=== PATIENT | male | born 2005 | race Caucasian/White ===

== ENCOUNTER 2024-02-09 19:12 | Emergency (ER) | payer BC, SELFPAY ==
[2024-02-09 19:36] VITALS: BP 165/86; PULSE 82; RESP 16; TEMP 36.6; O2SAT 98; BMI 29.7
--- NOTE | 2024-02-09 20:40 | ED_ITS ---
HPI - General Adult General Chief complaint: Dental/Oral/Mouth Injury/Pain Stated complaint: tooth pain Time Seen by Provider: 02/09/24 20:22 Source: patient Mode of arrival: ambulatory Limitations: no limitations History of Present Illness HPI narrative: 18-year-old male coming in today complaining of dental pain going on for 3 days. He denies any systemic symptoms. States he has had a root canal in that tooth a few years ago. Has not seen a dentist recently. Related Data Home Medications ?Medication ?Instructions ?Recorded ?Confirmed No Known Home Medications 02/09/24 02/09/24 Allergies Allergy/AdvReac Type Severity Reaction Status Date / Time No Known Drug Allergies Allergy Verified 02/09/24 19:39 Review of Systems Status of ROS: Reports: 10 or more systems reviewed and unremarkable except as noted in History and below Exam Narrative: Exam Narrative: Well-nourished well-developed patient in no acute distress. Alert and oriented. Answers questions appropriately. Mood and affect are appropriate. Thoughts are goal oriented and rational. No tangential or magical thinking noted. Patient speaks in full sentences without needing to catch his breath. He does not appear ill or toxic. HEENT: Normocephalic atraumatic. Pupils are equally round reactive to light. Extraocular muscles are intact. Conjunctivae are moist without any icterus noted. Moist mucous membranes. Posterior pharynx is normal. Neck is soft without any lymphadenopathy or thyromegaly. No masses are appreciated. Patient has tenderness to palpation of the 1st molar on the left lower side. Some mild erythema underneath it. There was no areas of fluctuance, no significant swelling noted. Skin: Warm, dry, intact. Const: Vital Signs, click to edit/add: Vital Signs - 24 hr 02/09/24 19:36 Temperature 97.9 F Pulse Rate [Left P ulse Oximeter] 82 Respiratory Rate 16 Blood Pressure [Ri ght Upper Arm] 165/86 H Pulse Oximetry 98 Oxygen Delivery Me thod Room Air Course Vital Signs Vital signs: Initial Vital Signs Temperature 97.9 F 02/09/24 19:36 Temperature Source Temporal Artery Scan 02/09/24 19:36 Pulse Rate 82 02/09/24 19:36 Pulse Rhythm Regular 02/09/24 19:36 Respiratory Rate 16 02/09/24 19:36 Blood Pressure 165/86 H 02/09/24 19:36 Blood Pressure Mean 112 H 02/09/24 19:36 Blood Pressure Position Sitting 02/09/24 19:36 Pulse Oximetry 98 02/09/24 19:36 Oxygen Delivery Method Room Air 02/09/24 19:36 Vital Signs Temperature 97.9 F 02/09/24 19:36 Pulse Rate 82 02/09/24 19:36 Respiratory Rate 16 02/09/24 19:36 Blood Pressure 165/86 H 02/09/24 19:36 Pulse Oximetry 98 02/09/24 19:36 Oxygen Delivery Method Room Air 02/09/24 19:36 Temperature 97.9 F 02/09/24 19:36 Pulse Rate 82 02/09/24 19:36 Respiratory Rate 16 02/09/24 19:36 Blood Pressure 165/86 H 02/09/24 19:36 Pulse Oximetry 98 02/09/24 19:36 Oxygen Delivery Method Room Air 02/09/24 19:36 Medical Decision Making MDM Narrative Medical decision making narrative: 18-year-old male with a toothache. Will start the patient on Augmentin. Information given to him to find a dentist as he is a student here from [place]. Discharge Plan Discharge Clinical Impression: Toothache Patient Disposition: Home, Self-Care Condition: Stable Additional Instructions: Take all antibiotics as prescribed. Will send you home today with some phone numbers to call to establish care with a dentist- this will be necessary even if your pain gets better. Augmentin sent to [facility]. Prescriptions: No Action No Known Home Medications Stand Alone Forms: [employer] Info Instructions
[2024-02-09] MEDS: KETOROLAC 30 MG/ML inj 60 MG IM (21:05)
== END 2024-02-09 21:09 | disposition home or self-care (01) ==
LOC: ED 20:49
PROVIDERS: Emergency Provider Family Medicine
DX: K08.89 Other specified disorders of teeth and supporting structures (principal)
CPT/HCPCS: 96372; 99283; J1885